=== PATIENT | male | born 1955 | race Caucasian/White ===

== ENCOUNTER 2016-10-11 05:35 | Outpatient (CLI) | payer BC ==
[~2016-10-11] VITALS: Ht 185.4 cm; Wt 96.6 kg
[~2016-10-11 05:35] MED LIST: AMLO1CAP9 PO; ASP81TEC PO; ASPI-586 PO; ATOR40TA PO; BACL10TA PO; BRIM5DRO OD; CHRO1TAB PO; DAPA5TAB PO; GLIM2TAB PO; GLIM4TAB PO; HYDR-2890 PO; HYDR-34 PO; HYDR12.56 PO; LIRA0.6P SQ; MAGN250T7 PO; METF500T8 PO; OXYC-12 PO; VANADYL SULFATE PO; ZOLP10TA5 PO; [UNRECOGNIZED DRUG - OTHER] PO
--- NOTE | 2016-10-11 09:27 | Pre-Op Note & Conscious Sedat ---
Pre-Operative Progress Note H&P Reviewed The H&P was reviewed, patient examined and no changes noted. Date H&P Reviewed: Oct 11, 2016 Time H&P Reviewed: 08:30 Conscious Sedation Pre-Proced ASA Class: 2 Airway Mallampati Classification: ([place] appropriate class) I. II. III, IV Lungs Heart ASA score ASA 1: a normal healthy patient ASA 2: a patient with a mild systemic disease (mid diabetes, controlled hypertension, obesity ASA 3: a patient with a severe systemic disease that limits activity (angina , COPD, prior Myocardial infarction) ASA 4: a patient with an incapacitating disease that is a constant threat to life (CHF, renal failure) ASA 5: a moribund patient not expected to survive 24 hrs. (ruptured aneurysm) ASA 6: a declared brain patient whose organs are being harvested. For emergent operations, add the letter E after the classification Grade 2 Sedation Plan: Analgesia, Amnesia, Plan communicated to team members, Discussed options with patient/fam, Discussed risks with patient/fam Note The patient is an appropriate candidate to undergo the planned procedure, sedation, and anesthesia. The patient immediately re-assessed prior to indication. JESSICA IBARRA MD Oct 11, 2016 09:27
[2016-10-11] MEDS ORDERED: ALPR1TAB2 PO (13:59)
== END 2016-10-11 14:04 ==
LOC: PREOP 05:35
PROVIDERS: ATTEND Internal Medicine
DX: Z01.818 Encounter for other preprocedural examination (principal); Z12.11 Encounter for screening for malignant neoplasm of colon

== ENCOUNTER 2016-10-15 06:40 | Day surgery (SDC) | payer BC ==
--- NOTE | 2016-10-11 06:54 | HISTORY AND PHYSICAL ---
DATE OF SERVICE: HISTORY OF PRESENT ILLNESS: The patient is a 61-year-old white male, referred by Dr. Mckinley Betancourt for screening colonoscopy. He is deemed to be of higher than average risk as his mother was diagnosed with colon cancer roughly around the age of 65. He reports one other colonoscopy well over 10 years ago and does not believe he had any polyps more significant abnormalities at that time performed by Dr. Quintero. He does report one episode of bright red blood per rectum roughly 2 weeks ago that was without pain and did not follow a bout of constipation or straining. Otherwise, he has noted no other episodes of rectal bleeding or melena. He reports his energy level has been stable and he feels well. He has a history of single vessel coronary artery disease with stenting of the right coronary artery greater than 2 years ago. His medical record was reviewed and he underwent cardiac catheterization for an abnormal stress test on 04/19/2015. At that time, he had no significant coronary artery disease and his right coronary stent was widely patent. It was reported to be a drug-eluting 3-mm TAXUS stent. PAST MEDICAL HISTORY: Also significant for hypertension and type 2 diabetes mellitus. PAST SURGICAL HISTORY: Significant for right total knee replacement in [address] Andrade for osteoarthritis. He has had 5 back surgeries involving the cervical and the lumbar spine, the last being a cervical fusion in 2014. He reports no significant problems with infection in the past. MEDICATIONS ON ADMISSION: Include amlodipine, benazepril 10/20 mg 1 daily, Farxiga 5 mg daily, Victoza injection 1.2 mg subcutaneous daily, Combigan otic 1 drop daily and an 81-mg aspirin daily. He takes zolpidem 10 mg at bedtime and another Combigan eyedrop as well as 1 mg of alprazolam at bedtime. For back pain, he is on p.r.n. hydrocodone 10/325 but he does not take on a daily basis and baclofen 10 mg on a p.r.n. basis. SOCIAL HISTORY: He reports no past smoking or drinking history. PHYSICAL EXAMINATION: GENERAL: Reveals a pleasant and articulate white male appears to be in no acute distress. VITAL SIGNS: Blood pressure 130/80. CHEST: Clear. CARDIOVASCULAR: Regular rate and rhythm without murmur, S3 or S4. NECK: Revealed no JVD, adenopathy or bruits. HEENT: Oral cavity reveals a Mallampati class 3 pharyngeal configuration. ABDOMEN: Soft, supple without mass, organomegaly or tenderness. EXTREMITIES: Reveal no cyanosis, clubbing or edema. ASSESSMENT: The patient was set up for screening colonoscopy. He is to check his record and will either be on 10/15/2016 or 10/25/2016. Prep instructions with Suprep kit were given and questions were answered. He is to hold aspirin for five days prior to his procedure. I thank you for the referral of this pleasant gentleman. Job ID: [id number] DocumentID: [id number] Dictated Date: 10/09/2016 14:43:40 Pump Erector Date: 10/09/2016 15:52:19 Dictated By: JESSICA IBARRA MD
[~2016-10-15] VITALS: Ht 185.4 cm; Wt 96.6 kg
[~2016-10-15 06:40] MED LIST changes: +ALPR1TAB2 PO
[2016-10-15] MEDS ORDERED: 1/2 NS IV SOLUTION 1,000 ML IV STA (06:50)
[2016-10-15] MEDS ORDERED: MIDAZOLAM 2 MG/2 ML (VERSED) VIAL IVP PRN (07:00)
[2016-10-15] MEDS ORDERED: FLUMAZENIL (ROMAZICON) 0.1 MG/ML 5 ML VIAL INJ PRN (07:00)
[2016-10-15] MEDS ORDERED: NALOXONE 0.4 MG/ML 1 ML (NARCAN) VIAL IVP PRN (07:00)
[2016-10-15] MEDS ORDERED: LIDOCAINE JELLY 2% (XYLOCAINE) 5 ML TUBE MM PRN (07:00)
[2016-10-15 07:06] VITALS: BP 144/91
[2016-10-15] MEDS ORDERED: MIDAZOLAM 2 MG/2 ML (VERSED) VIAL ONE (07:08)
[2016-10-15] MEDS ORDERED: fentaNYL INJECTION 100 MCG/2 ML AMP ONE (07:08)
[2016-10-15] MEDS ORDERED: LIDOCAINE JELLY 2% (XYLOCAINE) 5 ML TUBE ONE (07:08)
[2016-10-15] MEDS: fentaNYL INJECTION 100 MCG/2 ML AMP IVP PRN ×2 (07:42→07:50)
[2016-10-15 08:05] VITALS: BP 141/90
--- NOTE | 2016-10-15 08:06 | Pre-Op Note & Conscious Sedat ---
Pre-Operative Progress Note H&P Reviewed The H&P was reviewed, patient examined and no changes noted. Date H&P Reviewed: Oct 15, 2016 Time H&P Reviewed: 07:30 Conscious Sedation Pre-Proced ASA Class: 2 Airway Mallampati Classification: ([place] appropriate class) I. II. III, IV Lungs Heart ASA score ASA 1: a normal healthy patient ASA 2: a patient with a mild systemic disease (mid diabetes, controlled hypertension, obesity ASA 3: a patient with a severe systemic disease that limits activity (angina , COPD, prior Myocardial infarction) ASA 4: a patient with an incapacitating disease that is a constant threat to life (CHF, renal failure) ASA 5: a moribund patient not expected to survive 24 hrs. (ruptured aneurysm) ASA 6: a declared brain patient whose organs are being harvested. For emergent operations, add the letter E after the classification Grade 3 Sedation Plan: Analgesia, Amnesia, Plan communicated to team members, Discussed options with patient/fam, Discussed risks with patient/fam Note The patient is an appropriate candidate to undergo the planned procedure, sedation, and anesthesia. The patient immediately re-assessed prior to indication. JESSICA IBARRA MD Oct 15, 2016 08:06
[2016-10-15 08:35] VITALS: BP 123/85
[2016-10-15 08:55] VITALS: BP 123/85
--- OUTSIDE RECORDS SUMMARY | 2016-10-15 10:13 | XMS REPORT | Continuity of Care Document ---
Author Author [facility] Organization [facility] Address Unknown Phone Unavailable Allergies Active Description Code Type Severity Reaction Onset Reported/Identified Relationship to Patient Clinical Status Yes No Known Drug Allergies [id number] Drug Allergy Unknown N/ A 03/06/2011 Medications Problems Date Dx Coded Attending Type Code Diagnosis Diagnosed By 03/06/2011 Ot 250.00 DIAB CHENCHO WO COMPL, TYPE II OR UNSPEC TY 03/06/2011 Ot 401.9 HYPERTENSION NOS 03/06/2011 Ot 717.3 DERANG MED MENISCUS NEC 03/06/2011 Ot 717.7 CHONDROMALACIA PATELLAE 06/16/2011 Ot 250.00 DIAB CHENCHO WO COMPL, TYPE II OR UNSPEC TY 06/16/2011 Ot 401.9 HYPERTENSION NOS 06/16/2011 Ot 414.01 CORONARY ATHEROSCLEROSIS OF [place] CORON 06/16/2011 Ot 715.36 LOC OSTEOARTH NOS-L/LEG 09/24/2011 Ot V43.65 KNEE JOINT REPLACEMENT STATUS 09/24/2011 Ot V54.81 AFTERCARE FOLLOWING JOINT REPLACEMENT 09/24/2011 Ot V57.1 PHYSICAL THERAPY NEC 04/13/2015 Ot 717.7 04/13/2015 Ot V72.63 04/13/2015 Ot V74.8 04/13/2015 Ot 715.36 04/13/2015 Ot 791.9 04/13/2015 Ot V57.1 04/13/2015 Ot V57.21 04/13/2015 Ot V72.63 04/13/2015 Ot V72.81 04/13/2015 Ot V74.8 04/13/2015 MITCH AGGARWAL Ot 272.4 04/13/2015 MITCH AGGARWAL Ot 401.9 04/13/2015 MITCH AGGARWAL Ot 414.00 04/13/2015 MITCH AGGARWAL Ot 250.00 04/13/2015 MITCH AGGARWAL Ot 401.9 04/13/2015 MYRON PA, MITCH K Ot 414.00 04/13/2015 GAUTAM COATES, RUDDY R Ot 723.0 04/13/2015 GAUTAM COATES, RUDDY R Ot V45.4 04/13/2015 GAUTAM COATES, RUDDY R Ot V67.09 04/13/2015 MYRON PA, MITCH K Ot E11.9 04/13/2015 MYRON PA, MITCH K Ot E78.2 04/13/2015 MYRON PA, MITCH K Ot I10 04/13/2015 MYRON PA, MITCH K Ot I25.10 04/17/2015 Ot 717.7 04/17/2015 Ot V72.63 04/17/2015 Ot V74.8 04/17/2015 Ot 715.36 04/17/2015 Ot 791.9 04/17/2015 Ot V57.1 04/17/2015 Ot V57.21 04/17/2015 Ot V72.63 04/17/2015 Ot V72.81 04/17/2015 Ot V74.8 04/17/2015 MYRON PA, MITCH K Ot 272.4 04/17/2015 MYRON PA, MITCH K Ot 401.9 04/17/2015 MYRON PA, MITCH K Ot 414.00 04/17/2015 MYRON PA, MITCH K Ot 250.00 04/17/2015 MYRON PA, MITCH K Ot 401.9 04/17/2015 MYRON PA, MITCH K Ot 414.00 04/17/2015 GAUTAM COATES, RUDDY R Ot 723.0 04/17/2015 GAUTAM COATES, RUDDY R Ot V45.4 04/17/2015 GAUTAM COATES, RUDDY R Ot V67.09 04/17/2015 MYRON PA, MITCH K Ot E11.9 04/17/2015 MYRON PA, MITCH K Ot E78.2 04/17/2015 MYRON PA, MITCH K Ot I10 04/17/2015 MYRON PA, MITCH K Ot I25.10 04/17/2015 MYRON PA, MITCH K Ot E11.9 04/17/2015 MYRON PA, MITCH K Ot E78.2 04/17/2015 MYRON PA, MITCH K Ot I10 04/17/2015 MYRON PA, MITCH K Ot I25.10 04/19/2015 ALDO GARCIA MD Ot E11.9 TYPE 2 DIABETES MELLITUS WITHOUT COMPLIC 04/19/2015 ALDO GARCIA MD Ot E78.5 HYPERLIPIDEMIA, UNSPECIFIED 04/19/2015 ALDO GARCIA MD Ot I10 ESSENTIAL (PRIMARY) HYPERTENSION 04/19/2015 ALDO GARCIA MD Ot I25.10 ATHSCL HEART DISEASE OF [place] CORONARY 04/19/2015 ALDO GARCIA MD, Ot I25.2 OLD MYOCARDIAL INFARCTION 04/19/2015 ALDO GARCIA MD Ot R07.89 OTHER CHEST PAIN 04/19/2015 ALDO GARCIA MD Ot R94.39 ABNORMAL RESULT OF OTHER CARDIOVASCULAR 04/19/2015 ALDO GARCIA MD Ot 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 04/19/2015 ALDO GARCIA MD Ot Z98.61 CORONARY ANGIOPLASTY STATUS 04/25/2015 MYRON DOUGHERTY, MITCH K Ot E11.9 04/25/2015 MYRON PA, MITCH K Ot E78.2 04/25/2015 MYRON PA, MITCH K Ot I10 04/25/2015 MYRON PA, MITCH K Ot I25.10 05/03/2015 MYRON PA, MITCH K Ot E11.9 05/03/2015 MYRON PA, MITCH K Ot E78.2 05/03/2015 MYRON PA, MITCH K Ot I10 05/03/2015 MYRON PA, MITCH K Ot I25.10 05/05/2015 MYRON PA, MITCH K Ot E11.9 05/05/2015 MYRON PA, MITCH K Ot E78.2 05/05/2015 MYRON PA, MITCH K Ot I10 05/05/2015 MYRON PA, MITCH K Ot I25.10 05/19/2015 MITCH AGGARWAL Ot E11.9 05/19/2015 MITCH AGGARWAL Ot E78.2 05/19/2015 MITCH AGGARWAL Ot I10 05/19/2015 MITCH AGGARWAL Ot I25.10 08/05/2016 Ot 717.7 CHONDROMALACIA PATELLAE 08/05/2016 Ot V72.63 PRE-PROCEDURAL LABORATORY EXAMINATION 08/05/2016 Ot V74.8 SCREEN-BACTERIAL DIS NEC 08/05/2016 Ot 715.36 LOC OSTEOARTH NOS-L/LEG 08/05/2016 Ot 791.9 ABN URINE FINDINGS NEC 08/05/2016 Ot V57.1 PHYSICAL THERAPY NEC 08/05/2016 Ot V57.21 ENCOUNTER FOR OCCUPATIONAL THERAPY 08/05/2016 Ot V72.63 PRE-PROCEDURAL LABORATORY EXAMINATION 08/05/2016 Ot V72.81 [id number] CARDIOVASCULAR 08/05/2016 Ot V74.8 SCREEN-BACTERIAL DIS NEC 08/05/2016 MITCH AGGARWAL Ot 272.4 HYPERLIPIDEMIA NEC/NOS 08/05/2016 MITCH AGGARWAL Ot 401.9 HYPERTENSION NOS 08/05/2016 MITCH AGGARWAL Ot 414.00 CORON ATHEROSCLER NOS TYPE VESSEL, NATIV 08/05/2016 MITCH AGGARWAL Ot 250.00 DIAB CHENCHO WO COMPL, TYPE II OR UNSPEC TY 08/05/2016 MITCH AGGARWAL Ot 401.9 HYPERTENSION NOS 08/05/2016 MITCH AGGARWAL Ot 414.00 CORON ATHEROSCLER NOS TYPE VESSEL, NATIV 08/05/2016 GAUTAM COATES, RUDDY R Ot 723.0 CERVICAL SPINAL STENOSIS 08/05/2016 GAUTAM COATES, RUDDY R Ot V45.4 ARTHRODESIS STATUS 08/05/2016 GAUTAM COATES, RUDDY R Ot V67.09 SURGERY FOLLOW-UP, OTHER SURGERY 08/05/2016 MITCH AGGARWAL Ot E11.9 TYPE 2 DIABETES MELLITUS WITHOUT COMPLIC 08/05/2016 MITCH AGGARWAL Ot E78.2 MIXED HYPERLIPIDEMIA 08/05/2016 MITCH AGGARWAL Ot I10 ESSENTIAL (PRIMARY) HYPERTENSION 08/05/2016 MITCH AGGARWAL Ot I25.10 ATHSCL HEART DISEASE OF [place] CORONARY 08/05/2016 MITCH AGGARWAL Ot E11.9 TYPE 2 DIABETES MELLITUS WITHOUT COMPLIC 08/05/2016 MITCH AGGARWAL Ot E78.2 MIXED HYPERLIPIDEMIA 08/05/2016 MITCH AGGARWAL Ot I10 ESSENTIAL (PRIMARY) HYPERTENSION 08/05/2016 MITCH AGGARWAL Ot I25.10 ATHSCL HEART DISEASE OF [place] CORONARY 08/05/2016 MITCH AGGARWAL Ot E11.9 TYPE 2 DIABETES MELLITUS WITHOUT COMPLIC 08/05/2016 IMTCH AGGARWAL Ot E78.2 MIXED HYPERLIPIDEMIA 08/05/2016 MITCH AGGARWAL Ot I10 ESSENTIAL (PRIMARY) HYPERTENSION 08/05/2016 MITCH AGGARWAL Ot I25.10 ATHSCL HEART DISEASE OF [place] CORONARY 10/10/2016 Ot 715.36 LOC OSTEOARTH NOS-L/LEG 10/10/2016 Ot 791.9 ABN URINE FINDINGS NEC 10/10/2016 Ot V57.1 PHYSICAL THERAPY NEC 10/10/2016 Ot V57.21 ENCOUNTER FOR OCCUPATIONAL THERAPY 10/10/2016 Ot V72.63 PRE-PROCEDURAL LABORATORY EXAMINATION 10/10/2016 Ot V72.81 [id number] CARDIOVASCULAR 10/10/2016 Ot V74.8 SCREEN-BACTERIAL DIS NEC 10/10/2016 MITCH AGGARWAL Ot 272.4 HYPERLIPIDEMIA NEC/NOS 10/10/2016 MITCH AGGARWAL Ot 401.9 HYPERTENSION NOS 10/10/2016 MITCH AGGARWAL Ot 414.00 CORON ATHEROSCLER NOS TYPE VESSEL, NATIV 10/10/2016 MITCH AGGARWAL Ot 250.00 DIAB CHENCHO WO COMPL, TYPE II OR UNSPEC TY 10/10/2016 MITCH AGGARWAL Ot 401.9 HYPERTENSION NOS 10/10/2016 MITCH AGGARWAL Ot 414.00 CORON ATHEROSCLER NOS TYPE VESSEL, NATIV 10/10/2016 GAUTAM COATES, RUDDY No Ot 723.0 CERVICAL SPINAL STENOSIS 10/10/2016 GAUTAM COATES, RUDDY R Ot V45.4 ARTHRODESIS STATUS 10/10/2016 GAUTAM COATES, RUDDY R Ot V67.09 SURGERY FOLLOW-UP, OTHER SURGERY 10/10/2016 MITCH AGGARWAL Ot E11.9 TYPE 2 DIABETES MELLITUS WITHOUT COMPLIC 10/10/2016 MITCH AGGARWAL Ot E78.2 MIXED HYPERLIPIDEMIA 10/10/2016 MITCH AGGARWAL Ot I10 ESSENTIAL (PRIMARY) HYPERTENSION 10/10/2016 MITCH AGGARWAL Ot I25.10 ATHSCL HEART DISEASE OF [place] CORONARY 10/10/2016 MITCH AGGARWAL Ot E11.9 TYPE 2 DIABETES MELLITUS WITHOUT COMPLIC 10/10/2016 MITCH AGGARWAL Ot E78.2 MIXED HYPERLIPIDEMIA 10/10/2016 MITCH AGGARWAL Ot I10 ESSENTIAL (PRIMARY) HYPERTENSION 10/10/2016 MITCH AGGARWAL Ot I25.10 ATHSCL HEART DISEASE OF [place] CORONARY 10/10/2016 MITCH AGGARWAL Ot E11.9 TYPE 2 DIABETES MELLITUS WITHOUT COMPLIC 10/10/2016 MITCH AGGARWAL Ot E78.2 MIXED HYPERLIPIDEMIA 10/10/2016 MITCH AGGARWAL K Ot I10 ESSENTIAL (PRIMARY) HYPERTENSION 10/10/2016 MITCH AGGARWAL Ot I25.10 ATHSCL HEART DISEASE OF [place] CORONARY Procedures Code Description Performed By Performed On 81.54 TOTAL KNEE REPLACEMENT 06/12/2011 Results Encounters ACCT No. Visit Date/Time Discharge Status Pt. Type Provider Facility Loc./Unit Complaint [id number] 10/11/2016 05:35:00 2016 14:04:00 DIS Outpatient JESSICA IBARRA MD [facility] PREOP SCREENING [id number] 04/19/2015 07:21:00 2014 14:25:00 DIS Outpatient ALDO GARCIA MD [facility] CATH CAD,ABNORMAL STRESS TEST,HTN [id number] 02/11/2014 11:08:00 10/24/ 2014 23:59:59 CLS Outpatient GAUTAM COATES, RUDDY No [facility] RAD S/P SURGERY [id number] 10/25/2013 07:23:00 2013 23:59:59 CLS Outpatient MITCH AGGARWAL [facility] CARD CAD,HTN,HLP [id number] 10/14/2013 10:31:00 2013 23:59:59 CLS Outpatient MITCH AGGARWAL [facility] CARD CAD,HTN,HLP [id number] 10/15/2016 07:00:00 PEN Dayana IBARRA MD, JESSICA Will [facility] ENDO SCREENING/FAMILY HX CANCER [id number] 04/17/2015 07:05:00 ACT Outpatient MITCH CASTELLON [facility] CARD CAD,DM,HLP,HTN [id number] 04/13/2015 08:31:00 ACT Outpatient MITCH CASTELLON [facility] CARD CAD,DM,HLP,HTN [id number] 04/06/2015 11:57:00 ACT Outpatient MITCH CASTELLON [facility] RAD CAD,DM,HLP,HTN [id number] 09/09/2011 08:03:00 Document Registration [id number] 06/12/2011 05:36:00 Document Registration [id number] 06/04/2011 09:04:00 Document Registration [id number] 03/06/2011 05:47:00 Document Registration [id number] 03/04/2011 14:22:00 Document Registration
--- NOTE | 2016-10-21 17:57 | OPERATIVE REPORT ---
PROCEDURE PHYSICIAN: JESSICA IBARRA DATE OF PROCEDURE: 10/15/2016 Mr. Bernard underwent screening colonoscopy. He is deemed to be of higher than average risk as his mother was diagnosed with colon cancer in her mid to late 60's. Mr. Bernard was placed in the left lateral decubitus position. Digital rectal evaluation was performed. Anal sphincter tone was normal. The perianal reflex was intact. The prostate is mild to moderately enlarged, anodular and nontender to digital inspection. No other abnormalities were noted to digital inspection of the anal canal or distal rectal vault. The colonoscope was then inserted into the rectum and under visualization, advanced to the cecum. The cecum was identified by identification of ileocecal valve and the cecal strap. Quality of the prep was good and a careful inspection was performed on colonoscopy withdrawal. FINDINGS: 1. There is no evidence for internal or external hemorrhoids and the rectum was unremarkable. Several small sigmoid diverticulum were present with no other abnormalities being noted. The descending colon, splenic flexure, transverse colon, hepatic flexure and ascending colon and cecum were normal. Mild to moderate BPH noted on digital rectal evaluation with no nodules or tenderness being noted. 2. Mild diverticular disease confined to the sigmoid colon is present, without evidence for diverticulitis. Considering family history, did advocate consideration for repeat screening colonoscopy in 5 years. I thank you for the referral of this pleasant gentleman. Sincerely, Job ID: [id number] Dictated Date: 10/21/2016 11:45:39 Township Clerk Date: 10/21/2016 17:34:15 / dawn
== END 2016-10-15 10:40 | disposition home or self-care (01) ==
LOC: ENDO 06:40
PROVIDERS: ATTEND Internal Medicine
DX: Z12.11 Encounter for screening for malignant neoplasm of colon (principal); K57.30 Diverticulosis of large intestine without perforation or abscess without bleeding; Z80.0 Family history of malignant neoplasm of digestive organs; N40.0 Benign prostatic hyperplasia without lower urinary tract symptoms; I25.10 Atherosclerotic heart disease of native coronary artery without angina pectoris; I10 Essential (primary) hypertension; E11.9 Type 2 diabetes mellitus without complications; Z79.4 Long term (current) use of insulin; Z95.5 Presence of coronary angioplasty implant and graft

== ENCOUNTER → 2017-05-12 | Outpatient (CLI) | payer BC | LOC: CARD 08:37 | PROVIDERS: ATTEND Internal Medicine Cardiovascular Disease | DX: I25.10 Atherosclerotic heart disease of native coronary artery without angina pectoris (principal); R07.89 Other chest pain; E11.9 Type 2 diabetes mellitus without complications; E78.2 Mixed hyperlipidemia; I10 Essential (primary) hypertension; E66.9 Obesity, unspecified | CPT/HCPCS: 93306 ==

== ENCOUNTER → 2017-05-14 | Outpatient (CLI) | payer BC ==
[~2017-05-14] VITALS: Ht 185.4 cm; Wt 98.0 kg
[~2017-05-14] MED LIST changes: +CATHETER FLUSH 10 ML SYR IV PRN
[2017-05-14 09:23] VITALS: BP 148/96
[2017-05-14 09:28] VITALS: BP 167/96
[2017-05-14 09:38] VITALS: BP 219/92
--- NOTE | 2017-05-14 16:31 | STRESS TEST ---
DATE OF SERVICE: 05/14/2017 TREADMILL NUCLEAR STRESS TEST PRIMARY PHYSICIAN: . PRIMARY SLABBER LIGHT: Dr. Joel. PERFORMING PHYSICIAN: Dr. Kassi Avila. DIAGNOSIS: Coronary artery disease. PROCEDURE DETAILS: The patient was brought to the stress lab after informed consent was taken. Treadmill test was performed according to the Iain protocol. Baseline EKG showed sinus rhythm at 60 BPM. Maximum heart rate was 140 BPM which is 89% of the maximum predicted heart rate response. Baseline blood pressure was 148/96 mmHg. Maximum blood pressure was 219/92 mmHg. The patient exercised for 9 minutes and 46 seconds and achieved 11.3 metabolic equivalents. 10.63 mCi of Myoview were given for rest imaging and 30.4 mCi of Myoview were given for stress imaging. TID 0.89. EF 62% with no wall motion abnormalities. No significant perfusion abnormalities on stress and rest. CONCLUSION: 1. Normal treadmill stress test. 2. Above average functional capacity. 3. Hypertensive response to exercise. 4. Normal rest and stress perfusion. Job ID: [id number] DocumentID: [id number] Dictated Date: 05/14/2017 16:00:50 Bicycle Rental Clerk Date: 05/14/2017 16:30:43 Dictated By: NATE AVILA MD
== END ==
LOC: CARD 08:12
PROVIDERS: ATTEND Internal Medicine Cardiovascular Disease
DX: I25.10 Atherosclerotic heart disease of native coronary artery without angina pectoris (principal); R07.89 Other chest pain; E11.9 Type 2 diabetes mellitus without complications; E78.2 Mixed hyperlipidemia; I10 Essential (primary) hypertension; E66.9 Obesity, unspecified
CPT/HCPCS: 78452; 93017

== ENCOUNTER → 2018-03-31 | Outpatient (CLI) | payer BC ==
[~2018-03-31] MED LIST changes: -CATHETER FLUSH 10 ML SYR IV PRN
[2018-03-31 09:28] LABS: BASOPHILS % (AUTO) 1 % (0-10); EOSINOPHILS # (AUTO) 0.1 10^3/uL (0.0-0.3); EOSINOPHILS % (AUTO) 1 % (0-10); HEMATOCRIT 45 % (40-54); HEMOGLOBIN 15.2 G/DL (13.3-17.7); LYMPHOCYTES # (AUTO) 1.1 X 10^3 (1.0-4.0); LYMPHOCYTES % (AUTO) 26 % (12-44); MEAN CORPUSCULAR HEMOGLOBIN 29 PG (25-34); MEAN CORPUSCULAR HGB CONC 34 G/DL (32-36); MEAN CORPUSCULAR VOLUME 86 FL (80-99); MEAN PLATELET VOLUME 9.5 FL (7.4-10.4); MONOCYTES # (AUTO) 0.4 X 10^3 (0.0-1.0); MONOCYTES % (AUTO) 10 % (0-12); NEUTROPHILS # (AUTO) 2.7 X 10^3 (1.8-7.8); NEUTROPHILS % (AUTO) 62 % (42-75); PLATELET COUNT 169 10^3/uL (130-400); RED BLOOD COUNT 5.23 10^6/uL (4.35-5.85); RED CELL DISTRIBUTION WIDTH 14.1 % (10.0-14.5); WHITE BLOOD COUNT 4.3 10^3/uL (4.3-11.0)
[2018-03-31 09:51] LABS: ALANINE AMINOTRANSFERASE 26 U/L (0-55); ALBUMIN 4.6 GM/DL (3.2-4.5); ALKALINE PHOSPHATASE 69 U/L (40-136); BILIRUBIN,TOTAL 1.9 MG/DL (0.1-1.0); BUN/CREATININE RATIO 18; CALCIUM 9.8 MG/DL (8.5-10.1); CARBON DIOXIDE 26 MMOL/L (21-32); CHLORIDE 107 MMOL/L (98-107); CREATININE SERUM 0.93 MG/DL (0.60-1.30); GFR ESTIMATED > 60; GLUCOSE 132 MG/DL (70-105); POTASSIUM 4.4 MMOL/L (3.6-5.0); SODIUM 142 MMOL/L (135-145)
== END ==
LOC: CARD 09:13
PROVIDERS: ATTEND Family Medicine
DX: M54.40 Lumbago with sciatica, unspecified side (principal)
CPT/HCPCS: 36415; 80053; 85025; 93005

== ENCOUNTER → 2018-04-06 | Outpatient (CLI) | payer BC ==
[~2018-04-06] MED LIST changes: +GADOBUTROL 10 MMOL/10 ML (GADAVIST) VIAL IV ONE
--- NOTE | 2018-04-06 10:54 | Diagnostic Imaging Report ---
EXAM: MRI BRAIN IAC W/WO CONTRAST INDICATION: LEFT ASYMETRICAL HEARING LOSS COMPARISON: None. FINDINGS: Mild generalized cerebral and cerebellar parenchymal volume loss. Mild nonspecific scattered T2 hyperintensities in the supratentorial white matter, presumed leukoaraiosis. No abnormal intracranial enhancement. No restricted water diffusion or hemosiderin deposition. Normal morphology including the major midline structures, sella and posterior fossa. Dedicated sequences to the level of the IACs demonstrates normal morphology with no abnormal mass or enhancement. No hydrocephalus or extra-axial fluid collections. Normal intracranial flow voids. Postoperative changes in the globes. Moderate mucosal thickening in the floor of the left maxillary sinus. The mastoids are clear. Normal bone marrow signal. IMPRESSION: 1. Age-appropriate MRI of the brain. No acute intracranial MRI findings. 2. Dedicated sequences through the level of the internal auditory canals demonstrates normal morphology with no abnormal mass or enhancement. 3. Moderate mucosal thickening in the floor of the left maxillary sinus. Dictated by: Dictated on workstation # [id number]
== END ==
LOC: RAD 07:00
PROVIDERS: ATTEND Otolaryngology Otolaryngology/Facial Plastic Surgery
DX: H91.8X2 Other specified hearing loss, left ear (principal); J34.89 Other specified disorders of nose and nasal sinuses
CPT/HCPCS: 70553

== ENCOUNTER → 2019-02-03 | Outpatient (CLI) | payer BC ==
[~2019-02-03] VITALS: Ht 185 cm; Wt 87.0 kg
[~2019-02-03] MED LIST changes: +CATHETER FLUSH 10 ML SYR IV PRN; -GADOBUTROL 10 MMOL/10 ML (GADAVIST) VIAL IV ONE
[2019-02-03 10:09] VITALS: BP 139/81
[2019-02-03 10:24] VITALS: BP 225/85
--- NOTE | 2019-02-03 17:51 | STRESS TEST ---
DATE OF SERVICE: 02/03/2019 EXERCISE MYOVIEW STRESS TEST REPORT REFERRING PHYSICIAN: Dr. Hugo. Baseline heart rate is 55. Baseline blood pressure 139/81. Baseline EKG is sinus rhythm with no ischemic changes. In summary, the patient was injected with 9.92 mCi of technetium-99 Myoview and the resting images were obtained. Then, the patient started exercising with a baseline heart rate and blood pressure mentioned above. The patient was able to exercise for 10 minutes on standard Iain protocol. With peak exercise level, blood pressure was 225/85. EKG was showing nondiagnostic changes. During recovery, heart rate and blood pressure returned to baseline. EKG returned to baseline. The resting and stress images were reviewed and compared in the short axis, horizontal long axis, and vertical long axis views. Review of the images showed good radiotracer uptake with diaphragmatic attenuation. No significant ischemia or infarction was seen. SSS is 3, SDS 2, TID value 0.95. On the gated images, the left ventricle appeared to be normal size with normal contractility. Calculated ejection fraction 52%. IN CONCLUSION: 1. Excellent exercise tolerance, a total of 10 minutes on standard Iain protocol, total of 11.7 METS achieving 87% of maximum expected heart rate. 2. Severe hypertensive response to exercise with peak blood pressure 225/85, returned to baseline during recovery. 3. Nondiagnostic EKG changes with exercise returned to baseline during recovery. 4. Diaphragmatic attenuation with typical male pattern with no significant ischemia or infarction on SPECT images. 5. Normal left ventricular size with normal contractility. Calculated ejection fraction of 52%. Job ID: [id number] DocumentID: [id number] Dictated Date: 02/03/2019 17:34:44 Fur Ironer Date: 02/03/2019 17:50:16 Dictated By: ALDO GARCIA MD
== END ==
LOC: CARD 07:52
PROVIDERS: ATTEND Physician Assistant
DX: I25.10 Atherosclerotic heart disease of native coronary artery without angina pectoris (principal); I10 Essential (primary) hypertension; E78.5 Hyperlipidemia, unspecified; E11.9 Type 2 diabetes mellitus without complications; R06.02 Shortness of breath
CPT/HCPCS: 78452; 93017; 93306

== ENCOUNTER → 2019-06-04 | Outpatient (CLI) | payer MEDICARE, OTHER ==
[~2019-06-04] MED LIST changes: -CATHETER FLUSH 10 ML SYR IV PRN
--- NOTE | 2019-06-04 09:01 | Diagnostic Imaging Report ---
PROCEDURE: US Hepatic (Liver). TECHNIQUE: Multiple real-time grayscale images were obtained over the right upper quadrant in various projections. INDICATION: Elevated liver function tests. There are no prior studies available for comparison. FINDINGS: The liver does not appear to be enlarged and the liver appears homogeneous. There is no sign of a mass lesion and the biliary tree is not abnormally dilated. Spectral and color flow imaging of the portal vein and hepatic veins shows that the veins are patent and that there is normal directional flow within the veins. There are 2 roughly 1 cm gallstones within the gallbladder. The gallbladder wall is not thickened and there is no pericholecystic fluid to suggest acute cholecystitis. The common bile duct is not dilated either. The right kidney is unremarkable. The pancreas, the aorta and inferior vena cava were partially obscured by bowel gas. IMPRESSION: 1. The liver does not appear to be enlarged and there is no focal mass involving the liver. 2. There is cholelithiasis but there is no evidence for acute cholecystitis. 3. If clinical concern regarding an acute abnormality of the gallbladder exists and further imaging is desired, then a nuclear medicine hepatobiliary scan would be recommended. Dictated by: Dictated on workstation # [id number]
== END ==
LOC: RAD 07:15
PROVIDERS: ATTEND Family Medicine
DX: K80.20 Calculus of gallbladder without cholecystitis without obstruction (principal)
CPT/HCPCS: 76705

== ENCOUNTER → 2020-12-06 | Outpatient (CLI) | payer MEDICARE, OTHER ==
[~2020-12-06] VITALS: Ht 185 cm; Wt 87.0 kg
[~2020-12-06] MED LIST changes: +REGADENOSON 0.4 MG/5 ML SYR (LEXISCAN) IV ONE
[2020-12-06] MEDS: CATHETER FLUSH 10 ML SYR IV PRN ×2 (12:41→13:47)
[2020-12-06 13:36] VITALS: BP 133/77
--- NOTE | 2020-12-06 15:48 | Cardiology Stress Test Report ---
Stress Test Report Date of Procedure/Referring: Date of Procedure: Dec 06, 2020 Shauna Kee Admitting Physician Lefty Betancourt DO Indications: CAD Baseline Heart Rate: 59 Baseline Blood Pressure: Blood Pressure Systolic: 133 Blood Pressure Diastolic: 77 Baseline Vitals Vital Signs Date Time Temp Pulse Resp B/P (MAP) Pulse Ox O2 Delivery O2 Flow Rate FiO2 12/06/20 13:36 56 16 133/77 (95) 98 Room Air Baseline EKG: Baseline EKG: NSR Summary After explaining the procedure to the patient, he signed a consent and then brought to the stress nuclear laboratory. Patient received 0.4 mg Lexiscan for stress test, ECG, heart rate and blood pressure were monitored continuously. Resting and stress dose of radio tracer were injected, imaging was acquired and reviewed in short axis, horizontal long axis and vertical long axis views. TID: 1.03 SSS: 4 SDS: 2 EF: 53 1. Patient tolerated Lexiscan well 2. Diaphragmatic attenuation with mild decreased uptake at the mid to apical inferior wall with subtle reversibility, probably secondary to diaphragmatic attenuation, no significant ischemia or infarction was noted 3. Normal left ventricular size, EF 53% ALDO GARCIA MD Dec 06, 2020 15:48
== END ==
LOC: CARD 12:27
PROVIDERS: ATTEND Physician Assistant
DX: I25.10 Atherosclerotic heart disease of native coronary artery without angina pectoris (principal)
CPT/HCPCS: 78452; 93017; A9502

== ENCOUNTER → 2022-02-15 | Outpatient (CLI) | payer MEDICARE, OTHER ==
[~2022-02-15] MED LIST changes: -REGADENOSON 0.4 MG/5 ML SYR (LEXISCAN) IV ONE
== END ==
LOC: CARD 09:51
PROVIDERS: ATTEND Physician Assistant
DX: I10 Essential (primary) hypertension (principal); I25.10 Atherosclerotic heart disease of native coronary artery without angina pectoris
CPT/HCPCS: 93306

== ENCOUNTER 2022-09-04 05:48 | Outpatient (CLI) | payer MEDICARE, OTHER ==
[~2022-09-04] VITALS: Ht 182.9 cm; Wt 90.0 kg
[2022-09-04] MEDS ORDERED: DULA1.5P2 SQ (08:57)
[2022-09-04] MEDS ORDERED: ATOR10TA66 PO (08:57)
[2022-09-04] MEDS ORDERED: NF-LT10/20 PO (08:57)
[2022-09-04] MEDS ORDERED: BACL10TA PO (08:57)
[2022-09-04] MEDS ORDERED: ASPI-999 PO (08:57)
[2022-09-04] MEDS ORDERED: ALPR0.5T7 PO (08:57)
== END 2022-09-04 09:00 | disposition home or self-care (01) ==
LOC: PREOP 05:48
PROVIDERS: ATTEND Internal Medicine
DX: Z01.818 Encounter for other preprocedural examination (principal)

== ENCOUNTER 2022-09-06 08:00 | Day surgery (SDC) | payer MEDICARE, OTHER ==
--- NOTE | 2022-09-04 11:45 | HISTORY AND PHYSICAL ---
DATE OF SERVICE: 09/06/2022 COLONOSCOPY HISTORY AND PHYSICAL HISTORY OF PRESENT ILLNESS: The patient is a 67-year-old white male referred by Dr. Mckinley Betancourt for screening colonoscopy. He is deemed to be of higher than average risk as his mother was diagnosed with colon cancer around the age of 65. I last performed colonoscopy on him almost 6 years ago, at which time he had mild diverticular disease with no evidence for neoplasia. He denies bright red blood per rectum, change in bowel habits, diarrhea, constipation, or abdominal pain. PAST MEDICAL HISTORY: Significant for coronary artery disease. He had a stent placed in 2008, has had no problems since. He has a history of type 2 diabetes, hypertension, hyperlipidemia. He has no known other history for vascular disease. PAST SURGICAL HISTORY: Total knee replacement [place] [address] Andrade, has had a number of back surgeries at least 5 involving the cervical and lumbar spine, last was a cervical fusion procedure in 2014. SOCIAL HISTORY: He is retired with no past smoking or significant drinking history. REVIEW OF SYSTEMS: CONSTITUTIONAL: Denies night sweats, chills, fever or change in weight. PULMONARY: Denies cough, wheezing or shortness of breath. CARDIOVASCULAR: He has had no chest pain, dyspnea on exertion, orthopnea, PND, or syncope. GASTROINTESTINAL: As noted in the HPI. PHYSICAL EXAMINATION: GENERAL: Reveals a well-appearing, fit, white male in no acute distress. VITAL SIGNS: Blood pressure 130/88, weight 198 pounds. HEENT: Unremarkable. Sclerae nonicteric. CHEST: Clear to auscultation. CARDIOVASCULAR: Reveals a regular rate and rhythm without murmur, S3, or S4. ABDOMEN: Soft, supple without mass, organomegaly, or tenderness. EXTREMITIES: No cyanosis, clubbing or edema. ASSESSMENT AND PLAN: The patient is being set up for screening colonoscopy higher than average risk as his mother was diagnosed with colon cancer at the age of 65. Prep instructions were given and questions were answered. I thank you for referral of this pleasant gentleman. Job ID: [id number] DocumentID: [id number] Dictated Date: 09/04/2022 11:16:02 Spindle Plumber Date: 09/04/2022 11:43:00 Dictated By: JESSICA IBARRA MD [facility] CENTERNicolette
[~2022-09-06] VITALS: Ht 182.9 cm; Wt 90.0 kg
[~2022-09-06 08:00] MED LIST changes: +ALPR0.5T7 PO; +ASPI-999 PO; +ATOR10TA66 PO; +DULA1.5P2 SQ; +NF-LT10/20 PO
[2022-09-06] MEDS ORDERED: LACTATED RINGERS 1,000 ML IV STA (08:15)
[2022-09-06 08:18] VITALS: BP 175/91
--- NOTE | 2022-09-06 08:20 | Pre-Op Note & Conscious Sedat ---
Pre-Operative Progress Note Date H&P Reviewed: September 06, 2022 Time H&P Reviewed: 08:19 History & Physical: H&P Reviewed, Patient Examed, No changes noted Pre-Op Diagnosis: Screening Moderate Sedation PreProcedure ASA Score 2 Airway Lungs Heart ASA score ASA 1: a normal healthy patient ASA 2: a patient with a mild systemic disease (mid diabetes, controlled hypertension, obesity ASA 3: a patient with a severe systemic disease that limits activity (angina, COPD, prior Myocardial infarction) ASA 4: a patient with an incapacitating disease that is a constant threat to life (CHF, renal failure) ASA 5: a moribund patient not expected to survive 24 hrs. (ruptured aneurysm) ASA 6: a declared brain- patient whose organs are being harvested. For emergent operations, add the letter E after the classification Mallampati Classification Grade 2 Sedation Plan Analgesia, Amnesia, Plan communicated to team members, Discussed options with patient/fam, Discussed risks with patient/fam The patient is an appropriate candidate to undergo the planned procedure, sedation, and anesthesia. The patient immediately re-assessed prior to indication. JESSICA IBARRA MD September 06, 2022 08:20
[2022-09-06] MEDS ORDERED: PROPOFOL INJECTION 50 ML IV ONE (08:55)
[2022-09-06] MEDS ORDERED: MIDAZOLAM 2 MG/2 ML (VERSED) VIAL ONE (08:55)
[2022-09-06 09:28] VITALS: BP 126/75
--- NOTE | 2022-09-06 09:28 | Progress Note-Post Operative ---
Post-Procedure Note Physician (s)/Radio Electronics Officer (s) Physician JESSICA IBARRA MD Pre-Procedure Diagnosis Pre-Procedure Diagnosis: Screening Post-Procedure Diagnosis Post-operative diagnosis: Prior to undergoing colonoscopy digital rectal evaluation was performed. Anal sphincter tone was normal and the perianal reflexes intact. Prostate is mild to moderately enlarged and a nodular on digital inspection. No abnormalities noted on digital inspection of the anal canal or distal rectal vault. The colonoscope was then inserted into the rectum and under direct visualization advanced to the cecum. The cecum was identified by identification of the ileocecal valve and cecal strap. Photographic documentation was obtained. Quality the prep was good. A careful inspection was made as the colonoscope was removed. Findings: There was no evidence for internal or external hemorrhoids. The rectum sigmoid colon descending colon splenic flexure transverse colon ascending colon and cecum were unremarkable. A/P 1. Normal colonoscopy to cecum under good prep conditions. Considering family history of advocate consideration for repeat screening colonoscopy in 5 years. Sincerely Jessica Ibarra MD. CC: DO FRED Fish MARK D MD September 06, 2022 09:28
[2022-09-06 09:33] VITALS: BP 137/81
[2022-09-06 09:35] VITALS: BP 135/78
[2022-09-06 10:09] VITALS: BP 135/78
--- NOTE | 2022-09-06 12:03 | Anesthesia-General Post-Op ---
MAC Patient Condition Mental Status/LOC: Same as Preop Cardiovascular: Satisfactory Nausea/Vomiting: Absent Respiratory: Satisfactory Pain: Controlled Complications: Absent Post Op Complications Complications None Follow Up Care/Instructions Patient Instructions None needed. Anesthesiology Discharge Order Discharge Order Patient is doing well, no complaints, stable vital signs, no apparent adverse anesthesia problems. No complications reported per nursing. DYLAN LACKEY CRNA September 06, 2022 12:03
== END 2022-09-06 10:13 | disposition home or self-care (01) ==
LOC: ENDO 08:00
PROVIDERS: ATTEND Internal Medicine
DX: Z12.11 Encounter for screening for malignant neoplasm of colon (principal); N40.0 Benign prostatic hyperplasia without lower urinary tract symptoms; Z80.0 Family history of malignant neoplasm of digestive organs